=== PATIENT | male | born 1990 | race Caucasian/White ===

== ENCOUNTER 2018-11-23 09:21 | Emergency (ER) | payer OTHER ==
[~2018-11-23] VITALS: Ht 175.3 cm; Wt 68.0 kg
[~2018-11-23 09:21] MED LIST: ALBU90OI INH; Mucinex600 MG PO; Nasonex17 GM; Prednisone20 MG PO
[2018-11-23] MEDS ORDERED: Naprosyn500 MG PO (10:38)
== END 2018-11-23 10:50 | disposition home or self-care (01) ==
LOC: ER 09:21
DX: M77.9 Enthesopathy, unspecified (principal); Z88.0 Allergy status to penicillin; Z87.891 Personal history of nicotine dependence
CPT/HCPCS: 99283

== ENCOUNTER 2019-07-29 19:23 | Emergency (ER) | payer OTHER ==
[~2019-07-29] VITALS: Ht 175.3 cm; Wt 65.8 kg
[~2019-07-29 19:23] MED LIST changes: +Naprosyn500 MG PO
[2019-07-29] MEDS ORDERED: ALLERCLEAR10 MG PO (20:06)
[2019-07-29] MEDS ORDERED: PRED20 PO (20:06)
== END 2019-07-29 20:34 | disposition home or self-care (01) ==
LOC: ER 19:23
DX: L23.7 Allergic contact dermatitis due to plants, except food (principal); Z88.0 Allergy status to penicillin; Z87.891 Personal history of nicotine dependence
CPT/HCPCS: 99282; J7512

== ENCOUNTER → 2022-11-06 | Outpatient (CLI) | payer OTHER ==
[~2022-11-06] MED LIST changes: +ALLERCLEAR10 MG PO; +PRED20 PO
[2022-11-06 16:08] LABS: BASOPHILS ABSOLUTE AUTO 0.03 K/mm3 (0.00-0.23); BASOPHILS PERCENT AUTO 1 % (0-2); EOSINOPHILS ABSOLUTE AUTO 0.07 K/mm3 (0.00-0.68); EOSINOPHILS PERCENT AUTO 1 % (0-6); Hemoglobin 14.4 g/dL (13.5-17.5); IMMATURE GRAN ABSOLUTE AUTO 0.02 K/mm3 (0.00-0.10); IMMATURE GRAN PERCENT AUTO 0 % (0-1); LYMPHOCYTES ABSOLUTE AUTO 1.65 K/mm3 (0.84-5.20); LYMPHOCYTES PERCENT AUTO 30 % (21-46); MONOCYTES ABSOLUTE AUTO 0.27 K/mm3 (0.16-1.47); MONOCYTES PERCENT AUTO 5 % (4-13); Mean Corpuscular HGB 30.7 pg (26.0-34.0); Mean Corpuscular HGB Conc 35.1 g/dL (31.5-36.5); Mean Corpuscular Volume 87 fL (80-100); Mean Platelet Volume 8.8 fL (9.1-12.4); NEUTROPHILS ABSOLUTE AUTO 3.55 K/mm3 (1.96-9.15); NEUTROPHILS PERCENT AUTO 64 % (41-73); Platelet Count 197 K/mm3 (150-400); RDW Coefficient Variation 11.9 % (11.7-14.2); RDW Standard Deviation 38.3 fL (35.1-46.3); Red Blood Cell Count 4.69 M/mm3 (4.30-5.90); White Blood Cell Count 5.59 K/mm3 (4.00-11.30)
[2022-11-06 16:21] LABS: Albumin, Blood 4.2 g/dL (3.4-5.0); Albumin/Globulin Ratio 1.4 (0.8-1.8); Bilirubin, Total 0.5 mg/dL (0.1-1.0); Bun/Creatinine Ratio 12.4 (12.0-20.0); Calcium, Blood 8.5 mg/dL (8.5-10.1); Creatinine, Blood 1.13 mg/dL (0.60-1.20); Potassium, Blood 4.2 mmol/L (3.5-5.5); Total Protein, Blood 7.2 g/dL (6.4-8.2)
== END | disposition home or self-care (01) ==
LOC: LAB 16:05 → LAB SHORT 16:05
PROVIDERS: Emergency Medicine
DX: R59.1 Generalized enlarged lymph nodes (principal)
CPT/HCPCS: 80053; 85025

== ENCOUNTER 2022-11-21 15:07 | Emergency (ER) | payer OTHER ==
[~2022-11-21] VITALS: Ht 175.3 cm; Wt 61.2 kg
[~2022-11-21 15:07] MED LIST changes: +SULTRIDS PO
[2022-11-21 15:39] LABS: BASOPHILS ABSOLUTE AUTO 0.03 K/mm3 (0.00-0.23); BASOPHILS PERCENT AUTO 0 % (0-2); EOSINOPHILS ABSOLUTE AUTO 0.08 K/mm3 (0.00-0.68); EOSINOPHILS PERCENT AUTO 1 % (0-6); Hematocrit 40.9 % (37.0-53.0); Hemoglobin 14.5 g/dL (13.5-17.5); IMMATURE GRAN ABSOLUTE AUTO 0.02 K/mm3 (0.00-0.10); IMMATURE GRAN PERCENT AUTO 0 % (0-1); LYMPHOCYTES ABSOLUTE AUTO 1.57 K/mm3 (0.84-5.20); LYMPHOCYTES PERCENT AUTO 20 % (21-46); MONOCYTES ABSOLUTE AUTO 0.31 K/mm3 (0.16-1.47); MONOCYTES PERCENT AUTO 4 % (4-13); Mean Corpuscular HGB 30.7 pg (26.0-34.0); Mean Corpuscular HGB Conc 35.5 g/dL (31.5-36.5); Mean Corpuscular Volume 87 fL (80-100); Mean Platelet Volume 9.2 fL (9.1-12.4); NEUTROPHILS ABSOLUTE AUTO 5.92 K/mm3 (1.96-9.15); NEUTROPHILS PERCENT AUTO 75 % (41-73); Platelet Count 245 K/mm3 (150-400); RDW Coefficient Variation 11.9 % (11.7-14.2); Red Blood Cell Count 4.73 M/mm3 (4.30-5.90); White Blood Cell Count 7.93 K/mm3 (4.00-11.30)
[2022-11-21 16:05] LABS: Albumin, Blood 4.4 g/dL (3.4-5.0); Albumin/Globulin Ratio 1.4 (0.8-1.8); Bilirubin, Total 0.5 mg/dL (0.1-1.0); Bun/Creatinine Ratio 13.3 (12.0-20.0); Calcium, Blood 8.8 mg/dL (8.5-10.1); Creatinine, Blood 1.2 mg/dL (0.60-1.20); Globulin, Blood 3.2 g/dL (2.2-4.0); Potassium, Blood 3.7 mmol/L (3.5-5.5); Total Protein, Blood 7.6 g/dL (6.4-8.2)
[2022-11-21 18:30] VITALS: BP 130/80
[2022-11-21] MEDS ORDERED: CLINGEL TOP (18:33)
[2022-11-21] MEDS ORDERED: DOXY100 PO (18:33)
== END 2022-11-21 19:08 | disposition home or self-care (01) ==
LOC: ER 15:07
PROVIDERS: Student in an Organized Health Care Education/Training Program
DX: L73.2 Hidradenitis suppurativa (principal); Z88.0 Allergy status to penicillin; Z87.891 Personal history of nicotine dependence
CPT/HCPCS: 80053; 85025; 96374; 96375; 99283-25; A9270; J1885; J2270

== ENCOUNTER → 2023-03-21 | Outpatient (CLI) | payer OTHER ==
[~2023-03-21] MED LIST changes: +CLINGEL TOP; +DOXY100 PO
== END | disposition home or self-care (01) ==
LOC: LAB SHORT 15:42
DX: R50.9 Fever, unspecified (principal)
CPT/HCPCS: 87807

== ENCOUNTER 2024-06-14 23:52 | Emergency (ER) | payer BC, OTHER ==
[~2024-06-14] VITALS: Ht 170.2 cm; Wt 69.4 kg
[2024-06-15] MEDS ORDERED: Albuterol 2.5 MG/3 ML VIAL INH SCH ×2 (00:35→01:50)
[2024-06-15] MEDS ORDERED: PredniSONE 20 MG Tab PO ONE (00:45)
[2024-06-15] MEDS ORDERED: Mag Sulfate 1 GM/D5% 100ML 100 ML IV ONE (00:45)
[2024-06-15] MEDS ORDERED: RX Prepack Albuterol 1 PREPACK/6.7 GM INH UD ONE (00:55)
[2024-06-15] MEDS ORDERED: PRED20 PO (02:23)
[2024-06-15 02:26] VITALS: BP 139/79
== END 2024-06-15 02:27 | disposition home or self-care (01) ==
LOC: ER 23:52
DX: J45.901 Unspecified asthma with (acute) exacerbation (principal); Z87.891 Personal history of nicotine dependence; Z88.0 Allergy status to penicillin
CPT/HCPCS: 94640; 94664; 96374; 99284-25; A9270; J3475; J7512